=== PATIENT | male | born 1945 | race Caucasian/White ===

== ENCOUNTER 2018-11-07 16:46 | Outpatient (CLI) | payer MEDICARE | END 2018-11-07 16:47 | disposition critical access hospital (66) | LOC: EMS 16:46 | PROVIDERS: ATTEND Surgery | DX: R41.82 Altered mental status, unspecified (principal); S49.91XA Unspecified injury of right shoulder and upper arm, initial encounter; V27.4XXA Motorcycle driver injured in collision with fixed or stationary object in traffic accident, initial encounter; Y92.413 State road as the place of occurrence of the external cause | CPT/HCPCS: A0425; A0429 ==

== ENCOUNTER 2018-11-07 16:53 | Emergency (ER) | payer MEDICARE, OTHER ==
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
[2018-11-07] MEDS ORDERED: TETANUS/DIPHTHERIA/PERTUSSIS 0.5 ML SYRINGE IM ONE (17:05)
[2018-11-07] MEDS ORDERED: SODIUM CHLORIDE 0.9% 1,000 ML IV ONE (17:05)
[2018-11-07 17:12] LABS: BASOPHILS # (AUTO) 0.1 10^3/uL (0.0-0.1); BASOPHILS % (AUTO) 0.6 %; EOSINOPHILS # (AUTO) 0.1 10^3/uL (0.0-0.7); EOSINOPHILS % (AUTO) 0.8 %; HGB - HEMOGLOBIN 14.6 g/dL (14.0-18.0); LYMPHOCYTES # (AUTO) 3.5 10^3/uL (1.5-3.5); LYMPHOCYTES % (AUTO) 30.2 %; MEAN CORPUSCULAR HEMOGLOBIN 32.4 pg (27.0-31.0); MEAN CORPUSCULAR HGB CONC 34.1 g/dL (32.0-36.0); MEAN CORPUSCULAR VOLUME 94.9 fL (80.0-94.0); MONOCYTES # (AUTO) 0.9 10^3/uL (0.0-1.0); MONOCYTES % (AUTO) 8.1 %; NEUTROPHILS # (AUTO) 6.9 10^3/uL (1.5-6.6); NEUTROPHILS % (AUTO) 59.7 %; PLT - PLATELET COUNT 259 10^3/uL (130-450); RED BLOOD COUNT 4.51 10^6/uL (4.70-6.10); RED CELL DISTRIBUTION WIDTH 13.4 % (12.0-15.0); WHITE BLOOD COUNT 11.5 x10^3/uL (4.8-10.8)
[2018-11-07 17:18] LABS: PT - PROTHROMBIN TIME 11.5 secs (9.9-12.6)
[2018-11-07 17:23] LABS: ALBUMIN 4.1 g/dL (3.2-5.5); ALBUMIN/GLOBULIN RATIO 1.4 (1.0-2.2); BILIRUBIN,TOTAL 0.8 mg/dL (0.2-1.0); CALCIUM 9.3 mg/dL (8.5-10.3); TOTAL PROTEIN 7.1 g/dL (6.7-8.2)
--- NOTE | 2018-11-07 18:09 | XRAY Report ---
Reason: shoulder pain Procedure Date: 11/07/2018 Accession Number: [id number] / [id number] Procedure: XR - Shoulder 3 View RT CPT Code: FULL RESULT: EXAM: RIGHT SHOULDER RADIOGRAPHY EXAM DATE: 11/07/2018 05:34 PM. CLINICAL HISTORY: Shoulder pain. COMPARISON: None. TECHNIQUE: 3 views. FINDINGS: Bones: Acute transverse distal right clavicle fracture with 0.9 cm of superior displacement of the more distal fragment. No associated fracture of the right chest wall, scapula or proximal right humerus. Joints: Normal alignment of the right acromioclavicular and glenohumeral joints is noted. Mild right acromioclavicular and glenohumeral joint arthritis. Soft tissues: The visualized hemithorax is unremarkable. No soft tissue swelling. IMPRESSION: 1. Acute mildly displaced transverse distal right clavicle fracture. 2. No dislocation. RADIA
--- NOTE | 2018-11-07 18:09 | XRAY Report ---
Reason: elbow pain Procedure Date: 11/07/2018 Accession Number: [id number] / [id number] Procedure: XR - Elbow 3 View RT CPT Code: FULL RESULT: EXAM: RIGHT ELBOW RADIOGRAPHY EXAM DATE: 11/07/2018 05:34 PM. CLINICAL HISTORY: Elbow pain. COMPARISON: None. TECHNIQUE: 3 views. FINDINGS: Bones: Normal. No fractures or bone lesions. Joints: Small right elbow joint effusion. No subluxation. Soft Tissues: Normal. No soft tissue swelling. IMPRESSION: Small right elbow joint effusion. No acute displaced fracture or malalignment. RADIA
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
[2018-11-07] MEDS ORDERED: HYDROcod/ACETAM 5/325 MG TABLET PO STA (18:34)
[2018-11-07 18:50] LABS: BILIRUBIN,URINE NEGATIVE (NEGATIVE); CLARITY,URINE CLEAR (CLEAR); GLUCOSE, URINE (UA) NEGATIVE (NEGATIVE); KETONES,URINE (UA) NEGATIVE (NEGATIVE); LEUKOCYTE ESTERASE, URINE NEGATIVE (NEGATIVE); NITRITE,URINE NEGATIVE (NEGATIVE); OCCULT BLOOD,URINE NEGATIVE (NEGATIVE); PROTEIN,URINE NEGATIVE (NEGATIVE); UROBILINOGEN,URINE 1 (NORMAL) E.U./dL (NORMAL)
[2018-11-07] MEDS ORDERED: IOVERSOL 320 100 ML VIAL IVP ONE ×2 (18:56→18:58)
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
--- NOTE | 2018-11-07 19:45 | CT Report ---
Reason: [facility] Procedure Date: 11/07/2018 Accession Number: [id number] / [id number] Procedure: CT - Abdomen/Pelvis W CPT Code: FULL RESULT: EXAM: CT ABDOMEN AND PELVIS EXAM DATE: 11/07/2018 06:53 PM. CLINICAL HISTORY: [facility]. COMPARISONS: None. TECHNIQUE: Routine helical CT imaging was performed through the abdomen and pelvis. IV contrast: OPTI 320 90ML. Enteric contrast: No. Reconstructions: Coronal and sagittal. In accordance with CT protocol optimization, one or more of the following dose reduction techniques were utilized for this exam: automated exposure control, adjustment of mA and/or KV based on patient size, or use of iterative reconstructive technique. FINDINGS: Lung Bases: Unremarkable. Liver: Normal. No masses. Gallbladder/Bile Ducts: Contracted. Spleen: Normal. Pancreas: Normal. Adrenal Glands: Normal. Kidneys: Normal. No masses or hydronephrosis. Peritoneal Cavity/Bowel: Suggestion of mild mesenteric panniculitis in central abdomen (image 43 on series 3). This finding can be idiopathic or can be seen associated with inflammatory bowel disease, infection or neoplasm such as lymphoma. No abdominopelvic lymphadenopathy. No ascites. No masses or acute inflammatory process. The appendix is well visualized and normal. Pelvic Organs: Normal. The bladder and visualized pelvic organs are within normal limits. Vasculature: No aneurysms or other significant abnormality. Bones: No significant abnormality. Other: None. IMPRESSION: No acute traumatic abdominal pathology. Suggestion of mild mesenteric panniculitis in central abdomen; this finding can be idiopathic or can be seen associated with inflammatory bowel disease, infection or neoplasm such as lymphoma. No abdominopelvic lymphadenopathy. No ascites. RADIA
[2018-11-07 21:11] VITALS: BP 141/71
[2018-11-07] MEDS ORDERED: HYDROcod/ACET 5/325 Prepack 4 PO STA (21:31)
== END 2018-11-07 21:44 | disposition home or self-care (01) ==
LOC: ED 16:53
DX: S00.81XA Abrasion of other part of head, initial encounter (principal); S00.511A Abrasion of lip, initial encounter; S50.811A Abrasion of right forearm, initial encounter; S20.219A Contusion of unspecified front wall of thorax, initial encounter; S42.031A Displaced fracture of lateral end of right clavicle, initial encounter for closed fracture; S52.571A Other intraarticular fracture of lower end of right radius, initial encounter for closed fracture; V29.9XXA Motorcycle rider (driver) (passenger) injured in unspecified traffic accident, initial encounter; Y93.89 Activity, other specified; Y92.410 Unspecified street and highway as the place of occurrence of the external cause
CPT/HCPCS: 29105; 36415; 70450; 71045; 72125; 73030; 73080; 73110; 74177; 80053; 81003; 83690; 85025; 85610; 90471; 90715; 93005; 96360; 96361; 99284; A9270; Q9967; 80320; 81001; 87086